=== PATIENT | male | born 1990 | race Caucasian/White ===

== ENCOUNTER 2016-06-30 09:15 | Emergency (ER) | payer SELFPAY ==
[2016-06-30 09:35] VITALS: BP 117/72
--- NOTE | 2016-06-30 11:25 | ER Document Report ---
ED Oral Problem - General Chief Complaint: Toothache Stated Complaint: FACE PAIN Time seen by provider: 11:21 Mode of Arrival: Ambulatory Information source: Patient Notes: 25-year-old man presents to the emergency room with right lower facial swelling from an abscessed tooth. Patient denies fever, patient denies pain. Patient denies any difficulty swallowing or shortness of breath. Patient states his had an incision in his mouth before for similar presentation and that's what is requesting. Patient states that his insurance will "come in" and approximately a month and his been waiting until then. TRAVEL OUTSIDE OF THE [place] IN LAST 30 DAYS: No - HPI Patient complains to provider of: Swelling of jaw Onset: Last week Onset: Gradual Quality of pain: No pain Severity: None Pain Level: Denies Context: Other - Right molar dental caries Associated symptoms: denies: Difficulty speaking, Earache, Toothache Worsened by: Nothing Relieved by: Nothing Similar symptoms previously: Yes Recently seen / treated by doctor/dentist: No - Related Data Allergies/Adverse Reactions: No Known Allergies Allergy (Unverified 08/03/11 04:30) Past Medical History - General Information source: Patient - Social History Smoking Status: Never Smoker Cigarette use (# per day): No Frequency of alcohol use: Social Drug Abuse: None Lives with: Family Family History: None Patient has suicidal ideation: No Patient has homicidal ideation: No - Medical History Medical History: Negative Pulmonary Medical History: Reports: Hx Pneumonia Renal/ Medical History: Denies: Hx Peritoneal Dialysis - Immunizations Hx Diphtheria, Pertussis, Tetanus Vaccination: Yes Review of Systems - Review of Systems Constitutional: denies: Chills, Fever EENT: See HPI Cardiovascular: No symptoms reported Respiratory: No symptoms reported Gastrointestinal: No symptoms reported Genitourinary: No symptoms reported Male Genitourinary: No symptoms reported Musculoskeletal: No symptoms reported Skin: No symptoms reported Hematologic/Lymphatic: No symptoms reported Neurological/Psychological: No symptoms reported Physical Exam - Vital signs Vitals: Temp Pulse Resp BP Pulse Ox 98.4 F 72 17 117/72 97 06/30/16 09:33 06/30/16 09:33 06/30/16 09:33 06/30/16 09:33 06/30/16 09:33 Notes: Physical exam: GENERAL: 25-year-old man, sitting in stretcher in hallway 3: No acute distress. HEAD: Atraumatic, normocephalic. EYES: Pupils equal round and reactive to light, extraocular movements intact, sclera anicteric, conjunctiva are normal. ENT: TMs normal, nares patent, oropharynx clear without exudates. The patient does have right molar dental caries. There is no obvious fluctuance within the mouth itself. There is some swelling around the right mandible. There is no swelling in the submental spaces or any swelling or fluctuance or induration in the neck area. NECK: Normal range of motion, supple without lymphadenopathy. No swelling is noted above. LUNGS: Breath sounds clear to auscultation bilaterally and equal. No wheezes rales or rhonchi. HEART: Regular rate and rhythm without murmurs, rubs or gallops. Course - Vital Signs Vital signs: Temp Pulse Resp BP Pulse Ox 98.4 F 72 17 117/72 97 06/30/16 09:33 06/30/16 09:33 06/30/16 09:33 06/30/16 09:33 06/30/16 09:33 Discharge - Discharge Clinical Impression: dental caries Condition: Stable Disposition: HOME, SELF-CARE Instructions: Penicillin V K ([facility]), Toothache ([facility]) Additional Instructions: Recommendations: Take the antibiotics as prescribed. Follow-up with a dentist as planned. I have left a last of dental clinics that have reduced rates: This is another option. Ultimately, the tooth is going to have to come out for this infection and heal properly. Return to the emergency room for any difficulty swallowing, breathing or concerns for worsening swelling. Prescriptions: Penicillin V Potassium [Penicillin Vk 500 mg Tablet] 500 mg PO QID #28 tablet
== END 2016-06-30 11:26 | disposition home or self-care (01) ==
LOC: ER 09:15
DX: K02.9 Dental caries, unspecified (principal); R22.0 Localized swelling, mass and lump, head
CPT/HCPCS: 99282